=== PATIENT | male | born 1955 | race Caucasian/White ===

== ENCOUNTER → 2024-08-25 | Outpatient (CLI) | payer OTHER ==
--- NOTE | 2024-08-26 14:37 | US ---
EXAMINATION TYPE: US prostate transrectal DATE OF EXAM: 08/25/2024 COMPARISON: NONE CLINICAL INDICATION: Male, 68 years old with history of R97.20 ELEVATED PSA; Elevated PSA. TECHNIQUE: Grayscale and color Doppler imaging of the prostate gland. This examination was performed using the transrectal probe. EXAM MEASUREMENTS: Gland Size: 4.8 x 4.5 x 3.5 cm Volume: 39.65 ml Predicted PSA: 4.76 Actual PSA (if available):6.07 ng/mL Limited visibility of seminal vesicles- question anechoic areas within seminal vesicles?. Gland appears enlarged*. No obvious lesions seen in peripheral zone. Anechoic area seen that appears to be in the central zone = 0.6 x 0.5 x 0.6 cm. IMPRESSION: 1. Prostate glandular enlargement. While no suspicious lesion identified slightly discordant actual PSA. Correlate clinically and consider follow-up. Note that prostate MRI is a more sensitive exam for the detection of clinically significant prostate adenocarcinoma. Predicted PSA = volume x 0.12 ng/ml Calculated Volume = 0.5236 x L x W x [facility], , 08/26/2024 2:34 PM
== END | disposition home or self-care (01) ==
LOC: RADUSWWP 08:26
PROVIDERS: ATTEND Family Medicine
DX: N40.0 Benign prostatic hyperplasia without lower urinary tract symptoms (principal); R97.20 Elevated prostate specific antigen [PSA]
CPT/HCPCS: 76872